=== PATIENT | female | born 1995 | race Caucasian/White ===

== ENCOUNTER → 2016-09-26 | Outpatient (CLI) | payer OTHER ==
[2016-09-26 15:30] LABS: BASO % 0.3 % (0.0-1.0); EOS # 0.1 K/mm3 (0.0-0.50); LARGE UNSTAINED CELL # 0.2 K/mm3 (0.0-0.4); LARGE UNSTAINED CELL % 1.8 % (0.0-4.0); LYMPH # 1.5 K/mm3 (1.5-6.5); LYMPH % 17.7 % (24.0-44.0); MEAN CORPUSCULAR HEMOGLOBIN 31.6 pg (27.0-33.0); MEAN CORPUSCULAR HGB CONC 35.1 g/dl (32.0-36.5); MEAN CORPUSCULAR VOLUME 90.1 fl (80.0-96.0); MONO # 0.3 K/mm3 (0.0-0.8); MONO % 4.1 % (0.0-5.0); NEUTROPHILS # 6.3 K/mm3 (1.8-7.7); PLATELET COUNT, AUTOMATED 184 k/mm3 (150-450); WHITE BLOOD COUNT 8.4 K/mm3 (4.0-10.0)
[2016-09-28 08:58] LABS: HIV SCRN NEGATIVE (NEGATIVE)
[2016-09-28 08:59] LABS: CONTROL LINE INT CTR LINE PRESENT; HIV SCRN1 NEGATIVE (NEGATIVE)
[2016-09-28 10:58] LABS: HBsAg Prenatal NEGATIVE (NEGATIVE)
== END ==
LOC: M LAB 14:41
PROVIDERS: ATTEND Advanced Practice Midwife
DX: Z34.81 Encounter for supervision of other normal pregnancy, first trimester (principal)

== ENCOUNTER → 2016-11-23 | Outpatient (CLI) | payer OTHER ==
--- NOTE | 2016-11-23 15:21 | REP ---
REASON: anatomy. PRIORS: None. Multiple sonographic images of the gravid uterus show a single living intrauterine gestation in variable positions. Doppler interrogation of the heart shows the heart rate of 147 beats per minute. The cervix measures 3.8 cm in length and is closed. The placenta is bilateral and not low-lying. The subjective amniotic fluid volume is within normal limits. BPD 4.8 cm = 20 weeks 4 days HC 18.0 cm = 20 weeks 3 days AC 15.8 cm = 21 weeks 0 day FL 3.5 cm = 21 weeks 1 day The estimated weight is 388 grams, which is at the 54th percentile for a 29-agip-9-day gestational age. The anatomical structures visualized as unremarkable are as follows: Thalami, cavum septum pellucidum, cerebellum, cisterna magna, cerebral ventricles, spine, kidneys, four-chamber heart, right and left ventricular outflow tracts, stomach, cord insertion, three-vessel umbilical cord, spine, extremities, facial features, particularly upper lip, and urinary bladder. IMPRESSION: Single living intrauterine gestation as described above with an estimated gestational age of 20 weeks 4 days via composite criteria and an estimated date of delivery of 04/08/2017 by today's exam. No anomalies were detected. Signed by Winston Wynn DO 11/23/2016 03:42 P
== END ==
LOC: M SMT 13:04
PROVIDERS: ATTEND Advanced Practice Midwife
DX: Z34.82 Encounter for supervision of other normal pregnancy, second trimester (principal)

== ENCOUNTER → 2016-12-29 | Outpatient (CLI) | payer OTHER ==
[2016-12-29 12:59] LABS: MEAN CORPUSCULAR HEMOGLOBIN 33.1 pg (27.0-33.0); MEAN CORPUSCULAR HGB CONC 34.2 g/dl (32.0-36.5); MEAN CORPUSCULAR VOLUME 96.6 fl (80.0-96.0); RED CELL DISTRIBUTION WIDTH 12.6 % (11.5-14.5); WHITE BLOOD COUNT 11.6 K/mm3 (4.0-10.0)
== END ==
LOC: M LAB 11:01
PROVIDERS: ATTEND Obstetrics & Gynecology
DX: Z34.82 Encounter for supervision of other normal pregnancy, second trimester (principal)

== ENCOUNTER → 2017-03-10 | Outpatient (REF) | payer OTHER | LOC: M LAB REF 17:10 | PROVIDERS: ATTEND Advanced Practice Midwife | DX: Z34.83 Encounter for supervision of other normal pregnancy, third trimester (principal) ==

== ENCOUNTER → 2017-03-19 | Outpatient (CLI) | payer OTHER ==
[~2017-03-19] MED LIST: COLA100C5 PO; MOTR200T44 PO; PRENTAB55 PO; TYLE325T5 PO
--- NOTE | 2017-03-19 16:44 | REP ---
Obstetric ultrasound for size, date discrepancy: There is a single intrauterine gestation in a vertex presentation. There is movement and cardiac activity. The heart rate is 122 beats per minute. The left central is fundal without previa or abruptio with grade two maturity. The amniotic fluid volume subjectively is normal. The amniotic fluid index is 12.7 (7.4 - 24.3). By the ultrasound today the gestational age is 36 weeks 2 days with an MARYANN of 04/14/2017. By the first ultrasound during this gestation the gestational age is 37 weeks 1 day. weight is 2899 grams (6 pounds, 6 ounces). This is the 38 percentile for 37 weeks 2 days. Umbilical artery Doppler assessment: SD ratio 2.45. Resistive index of 0.59. Diastolic flow velocity 15.4 cm/sec. These values are in their normal ranges. Signed by Sam Holloway MD 03/19/2017 04:35 P
== END ==
LOC: M RAD 15:44
PROVIDERS: ATTEND Advanced Practice Midwife
DX: Z36 Encounter for antenatal screening of mother (principal)

== ENCOUNTER 2017-04-01 04:43 | Inpatient (IN) | payer OTHER ==
[~2017-04-01] VITALS: Ht 160 cm; Wt 65.0 kg
[2017-04-01] VITALS (53 sets, daily range): BP systolic 57–124; BP diastolic 41–109
[2017-04-01] MEDS ORDERED: LACTATED RINGER'S 1000 ML IV STA (06:04)
[2017-04-01] MEDS ORDERED: LR 1,000 ML IV SCH (06:04)
[2017-04-01 06:16] LABS: MEAN CORPUSCULAR HEMOGLOBIN 33.6 pg (27.0-33.0); MEAN CORPUSCULAR HGB CONC 35.4 g/dl (32.0-36.5); MEAN CORPUSCULAR VOLUME 94.7 fl (80.0-96.0); RED CELL DISTRIBUTION WIDTH 12.1 % (11.5-14.5); WHITE BLOOD COUNT 19.4 K/mm3 (4.0-10.0)
[2017-04-01] MEDS ORDERED: FENTANYL 2MCG/ML ROPIVACAINE 0.2% IN 0.9% NACL 200ML IVBAG As Ordered ONE (06:59)
[2017-04-01] MEDS ORDERED: NALOXONE INJ 0.4 MG/1 ML VIAL (J2310) IV PRN (08:00)
[2017-04-01] MEDS ORDERED: EPIDURAL/PCA KEYS XX PRN (08:00)
[2017-04-01] MEDS ORDERED: REFRIGERATOR IV KEYS XX PRN (08:00)
[2017-04-01] MEDS ORDERED: ePHEDrine SULFATE 25 MG/5 ML(5MG/ML) SYRINGE IV PRN (08:00)
[2017-04-01] MEDS ORDERED: ONDANSETRON 4MG/2ML VIAL (J2405) IV PRN (08:00)
[2017-04-01] MEDS ORDERED: LACTATED RINGER'S 1000 ML IV PRN (08:00)
[2017-04-01] MEDS ORDERED: diphenhydrAMINE INJ 50MG/ML VIAL (J1200) IV PRN (08:00)
[2017-04-01] MEDS ORDERED: FENTANYL/ROPIVACAINE/NACL BAG 200 ML EPIDURAL SCH (08:00)
[2017-04-01] MEDS ORDERED: EPIDURAL COMMENT XX SCH (08:00)
[2017-04-01] MEDS ORDERED: OXYTOCIN 30 UNITS IN 0.9% NaCl 500ML IV BAG (J2590) As Ordered ONE (10:37)
[2017-04-01] MEDS ORDERED: OXYTOCIN DRIP 30 UNITS in APPROPRIATE DILUENT 1 EA IV SCH ×2 (10:45→14:58)
[2017-04-01] MEDS ORDERED: DIBUCAINE 1% OINTMENT 30GM TOP PRN (15:00)
[2017-04-01] MEDS ORDERED: METHYLERGONOVINE MALEATE 0.2 MG TAB PO PRN (15:00)
[2017-04-01] MEDS ORDERED: MEASLES,MUMPS,RUBELLA VACCINE INJ (MMR-II) (90707) SC SCH (15:00)
[2017-04-01] MEDS ORDERED: ANUSOL HC CREAM 30GM TOP PRN (15:00)
[2017-04-01] MEDS ORDERED: DOCUSATE SODIUM 100 MG CAP PO PRN (15:00)
[2017-04-01] MEDS ORDERED: RHOGAM 300 MCG (1500 IU) INJ (J2790) IM SCH (15:00)
[2017-04-01] MEDS ORDERED: ACETAMINOPHEN 500 MG TAB PO PRN (15:00)
--- NOTE | 2017-04-01 15:17 | DN ---
DATE OF DELIVERY: 04/01/2017 Linda is a 21-year-old 1, para 1-0-0-1 now who was admitted to labor and delivery in active labor. She did utilize an epidural for her labor coping. She progressed to full dilation at 1309 and had assisted rupture of membranes for a large amount of clear odorless fluid at the same time. IV Pitocin was started to augment her labor. She did push to a normal spontaneous vaginal delivery at 1428 hours. She delivered a male fetus in direct OP position with restitution to LOT position. There was no nuchal cord. The shoulders delivered spontaneously and the corpus immediately followed. The was placed on the maternal abdomen crying and active. His mouth and nares were bulb suctioned. The cord was clamped times two and cut by the maternal great-grandmother. A spontaneous expulsion of an intact placenta with three-vessel cord by [place] mechanism was at 1434 hours. Uterine hemostasis achieved with IV Pitocin rapid infusion and uterine fundal massage. Estimated blood loss 300 mL. Perineum and vagina were inspected noted to have a first-degree midline laceration. The laceration was repaired under epidural anesthesia in the usual fashion. [place] male weighed 6 pounds 1 ounce, 2760 grams, scores of 9 and 10. Mother is naming her son Robina. She is going to bottle feed her son. At the close of delivery, lap counts, needle counts and instrument counts were correct and verified. Edited: [facility] 04/04/2017 1247 MTDD
[2017-04-01] MEDS: IBUPROFEN 800 MG TAB PO PRN (15:56)
[2017-04-02] MEDS: IBUPROFEN 800 MG TAB PO PRN ×3 (00:45→23:20)
[2017-04-02 05:36] VITALS: BP 104/53
[2017-04-02] MEDS: PRENATAL VITAMINS CHEWABLE TABLET PO SCH (08:08)
[2017-04-02 18:35] VITALS: BP 119/72
[2017-04-03 05:30] VITALS: BP 117/59
[2017-04-03] MEDS: PRENATAL VITAMINS CHEWABLE TABLET PO SCH (08:09)
[2017-04-03] MEDS: IBUPROFEN 800 MG TAB PO PRN (08:10)
[2017-04-03] MEDS ORDERED: MOTR200T44 PO (11:18)
[2017-04-03] MEDS ORDERED: COLA100C5 PO (11:18)
[2017-04-03] MEDS ORDERED: TYLE325T5 PO (11:18)
[2017-04-03] MEDS ORDERED: PRENTAB55 PO (11:18)
== END 2017-04-03 11:50 | disposition home or self-care (01) | DRG 560 ==
LOC: M LDO 04:43 → M LDI 06:02 → M OBS 16:36
PROVIDERS: ADMIT Obstetrics & Gynecology; ATTEND Obstetrics & Gynecology
PROC: 10E0XZZ Delivery of Products of Conception, External Approach (ICD-10-PCS; principal; 2017-04-01)
PROC: 0HQ9XZZ Repair Perineum Skin, External Approach (ICD-10-PCS; 2017-04-01)
DX: O70.0 First degree perineal laceration during delivery (principal); F17.200 Nicotine dependence, unspecified, uncomplicated; Z37.0 Single live birth; Z3A.39 39 weeks gestation of pregnancy; O99.334 Smoking (tobacco) complicating childbirth

== ENCOUNTER → 2020-01-14 | Outpatient (REF) | payer OTHER | LOC: M LAB REF 19:05 | PROVIDERS: ATTEND Physician Assistant | DX: J02.9 Acute pharyngitis, unspecified (principal) ==

== ENCOUNTER → 2020-03-28 | Outpatient (CLI) | payer OTHER ==
--- NOTE | 2020-03-28 22:56 | REP ---
KNEE: REASON: Atraumatic knee pain. PRIORS: None. FINDINGS: The compartments are symmetric and relatively well maintained. There is no acute fracture or destructive osseous lesion. Electronically Signed by Winston Wynn DO 03/29/2020 08:52 A
== END ==
LOC: M WUC 13:31
PROVIDERS: ATTEND Physician Assistant
DX: M25.561 Pain in right knee (principal)

== ENCOUNTER → 2020-11-21 | Outpatient (REF) | payer OTHER | LOC: M SFHCWAGY 16:42 | PROVIDERS: ATTEND Advanced Practice Midwife | DX: Z11.3 Encounter for screening for infections with a predominantly sexual mode of transmission (principal) ==

== ENCOUNTER → 2021-05-30 | Outpatient (CLI) | payer OTHER ==
[2021-05-30 17:11] LABS: HEMATOCRIT 37.4 % (36.0-47.0); HEMOGLOBIN 12.9 g/dl (12.0-15.5); MEAN CORPUSCULAR HEMOGLOBIN 31.9 pg (27.0-33.0); MEAN CORPUSCULAR HGB CONC 34.5 g/dl (32.0-36.5); MEAN CORPUSCULAR VOLUME 92.3 fl (80.0-96.0); PLATELET COUNT, AUTOMATED 224 10^3/uL (150-450); RED BLOOD COUNT 4.05 10^6/uL (4.00-5.40); WHITE BLOOD COUNT 10.7 10^3/uL (4.0-10.0)
[2021-05-30 18:29] LABS: GC DNA AMPLIFICATION NEGATIVE (NEGATIVE)
== END ==
LOC: M PLALAB 14:57
PROVIDERS: ATTEND Advanced Practice Midwife
DX: O99.331 Smoking (tobacco) complicating pregnancy, first trimester (principal); F17.200 Nicotine dependence, unspecified, uncomplicated; Z3A.00 Weeks of gestation of pregnancy not specified

== ENCOUNTER → 2021-07-28 | Outpatient (REF) | LOC: M EMP 08:11 | PROVIDERS: ATTEND Family Medicine | DX: Z11.52 Encounter for screening for COVID-19 (principal); Z20.822 Contact with and (suspected) exposure to COVID-19 ==

== ENCOUNTER → 2021-07-31 | Outpatient (REF) | LOC: M LABSMTC 09:59 | PROVIDERS: ATTEND Pediatrics | DX: Z11.52 Encounter for screening for COVID-19 (principal); Z20.822 Contact with and (suspected) exposure to COVID-19 ==

== ENCOUNTER → 2021-08-20 | Outpatient (CLI) | payer OTHER | LOC: M WHC 12:57 | PROVIDERS: ATTEND Advanced Practice Midwife | DX: O99.332 Smoking (tobacco) complicating pregnancy, second trimester (principal); Z3A.20 20 weeks gestation of pregnancy ==

== ENCOUNTER → 2021-08-29 | Outpatient (CLI) | payer OTHER | LOC: M WHC 14:38 | PROVIDERS: ATTEND Specialist | DX: Z36.2 Encounter for other antenatal screening follow-up (principal); Z3A.22 22 weeks gestation of pregnancy ==

== ENCOUNTER → 2021-10-02 | Outpatient (REF) | LOC: M LABSMTC 13:27 | PROVIDERS: ATTEND Pediatrics | DX: Z11.52 Encounter for screening for COVID-19 (principal); Z20.822 Contact with and (suspected) exposure to COVID-19 ==

== ENCOUNTER → 2021-10-10 | Outpatient (CLI) | payer OTHER | LOC: M WHC 15:01 | PROVIDERS: ATTEND Advanced Practice Midwife | DX: Z34.82 Encounter for supervision of other normal pregnancy, second trimester (principal); Z3A.27 27 weeks gestation of pregnancy ==

== ENCOUNTER → 2021-10-17 | Outpatient (CLI) | payer OTHER | LOC: M PLALAB 10:12 | PROVIDERS: ATTEND Specialist | DX: Z34.82 Encounter for supervision of other normal pregnancy, second trimester (principal); Z36.89 Encounter for other specified antenatal screening ==

== ENCOUNTER → 2021-10-27 | Outpatient (CLI) | payer OTHER | LOC: M WHC 13:22 | PROVIDERS: ATTEND Advanced Practice Midwife | DX: Z34.83 Encounter for supervision of other normal pregnancy, third trimester (principal); Z3A.29 29 weeks gestation of pregnancy ==

== ENCOUNTER → 2021-11-19 | Outpatient (REF) | payer OTHER | LOC: M PLALAB 08:42 | PROVIDERS: ATTEND Advanced Practice Midwife | DX: Z12.4 Encounter for screening for malignant neoplasm of cervix (principal) ==

== ENCOUNTER → 2021-12-05 | Outpatient (REF) | payer OTHER | LOC: M PLALAB 15:06 | PROVIDERS: ATTEND Specialist | DX: Z36.85 Encounter for antenatal screening for Streptococcus B (principal) ==

== ENCOUNTER → 2022-05-15 | Outpatient (REF) ==
[~2022-05-15] MED LIST changes: +BENA25CA4 PO
== END ==
LOC: M EMP 08:26
PROVIDERS: ATTEND Family Medicine
DX: Z20.822 Contact with and (suspected) exposure to COVID-19 (principal)

== ENCOUNTER → 2022-06-03 | Outpatient (REF) | LOC: M LABSMTC 11:56 | PROVIDERS: ATTEND Family Medicine | DX: Z20.822 Contact with and (suspected) exposure to COVID-19 (principal) ==

== ENCOUNTER → 2023-06-09 | Outpatient (REF) | LOC: M EMP 09:08 | PROVIDERS: ATTEND Family Medicine | DX: Z11.52 Encounter for screening for COVID-19 (principal) ==

== ENCOUNTER → 2024-06-20 | Outpatient (REF) | LOC: M EMP 08:06 | PROVIDERS: ATTEND Family Medicine | DX: Z11.52 Encounter for screening for COVID-19 (principal) ==

== ENCOUNTER → 2024-07-14 | Outpatient (CLI) | payer OTHER ==
[2024-07-14 19:40] LABS: BASO % 0.4 % (0.0-1.0); EOS # 0.1 10^3/uL (0.0-0.5); EOS % 1.2 % (0.0-3.0); HEMATOCRIT 38.1 % (36.0-47.0); HEMOGLOBIN 12.6 g/dl (12.0-15.5); LYMPH # 2.3 10^3/uL (1.5-5.0); LYMPH % 30.7 % (24.0-44.0); MEAN CORPUSCULAR HEMOGLOBIN 30.1 pg (27.0-33.0); MEAN CORPUSCULAR HGB CONC 33.1 g/dl (32.0-36.5); MEAN CORPUSCULAR VOLUME 91.1 fl (80.0-96.0); MONO # 0.5 10^3/uL (0.0-0.8); MONO % 6.9 % (2.0-8.0); NEUTROPHILS # 4.6 10^3/uL (1.5-8.5); NEUTROPHILS % 60.1 % (36.0-66.0); PLATELET COUNT, AUTOMATED 254 10^3/uL (150-450); RED BLOOD COUNT 4.18 10^6/uL (4.00-5.40); WHITE BLOOD COUNT 7.6 10^3/uL (4.0-10.0)
[2024-07-14 20:10] LABS: LIPASE 34 U/L (12-53)
[2024-07-14 20:11] LABS: ALBUMIN 3.8 G/DL (3.2-5.2); ALKALINE PHOSPHATASE 94 U/L (35-104); ALT/SGPT 14 U/L (7.0-40); AST/SGOT 10 U/L (<34); BILIRUBIN,TOTAL 0.6 MG/DL (0.3-1.2); BLOOD UREA NITROGEN 10 MG/DL (9-23); CARBON DIOXIDE LEVEL 26 MMOL/L (20-31); CHLORIDE LEVEL 110 MMOL/L (98-107); CHOLESTEROL LEVEL 147 MG/DL (<200); CHOLESTEROL RISK RATIO 3.92 (<5); CREATININE FOR GFR 0.74 MG/DL (0.55-1.30); GLOMERULAR FILTRATION RATE > 60.0 (>60); GLUCOSE, FASTING 96 MG/DL (60-100); HDL CHOLESTEROL 37.5 MG/DL (>40); LDL CHOLESTEROL 93.9 MG/DL (<100); NON-HDL-C 109.5 MG/DL; POTASSIUM SERUM 3.9 MMOL/L (3.5-5.1); SODIUM LEVEL 142 MMOL/L (136-145); TOTAL PROTEIN 7.1 G/DL (5.7-8.2); TRIGLYCERIDES LEVEL 78 MG/DL (<150)
[2024-07-14 20:15] LABS: FREE T4 1.17 NG/DL (0.89-1.76)
== END ==
LOC: M PLALAB 14:44
PROVIDERS: ATTEND Nurse Practitioner Family
DX: R10.84 Generalized abdominal pain (principal); R53.83 Other fatigue; Z13.220 Encounter for screening for lipoid disorders

== ENCOUNTER → 2024-07-17 | Outpatient (CLI) | payer OTHER | LOC: M WHC 08:33 | PROVIDERS: ATTEND Nurse Practitioner Family | DX: R10.84 Generalized abdominal pain (principal) ==

== ENCOUNTER → 2024-07-18 | Outpatient (REF) | payer OTHER ==
[2024-07-20 15:48] LABS: HPV APTIMA Not Detected (Not Detected)
== END ==
LOC: M SFHCWAGY 14:48
PROVIDERS: ATTEND Nurse Practitioner Family
DX: Z12.4 Encounter for screening for malignant neoplasm of cervix (principal)

== ENCOUNTER → 2024-09-06 | Outpatient (CLI) | payer OTHER | LOC: M WHC 10:04 | PROVIDERS: ATTEND Nurse Practitioner Family | DX: N64.3 Galactorrhea not associated with childbirth (principal) ==

== ENCOUNTER 2024-11-30 09:52 | Day surgery (SDC) | payer OTHER ==
[~2024-11-30] VITALS: Ht 160 cm; Wt 74.8 kg
[~2024-11-30 09:52] MED LIST changes: +OMEP40CA5 PO
[2024-11-30 10:20] LABS: HEMATOCRIT 36.9 % (36.0-47.0); HEMOGLOBIN 12.4 g/dl (12.0-15.5); MEAN CORPUSCULAR HEMOGLOBIN 30.6 pg (27.0-33.0); MEAN CORPUSCULAR HGB CONC 33.6 g/dl (32.0-36.5); MEAN CORPUSCULAR VOLUME 91.1 fl (80.0-96.0); PLATELET COUNT, AUTOMATED 236 10^3/uL (150-450); RED BLOOD COUNT 4.05 10^6/uL (4.00-5.40); WHITE BLOOD COUNT 7.2 10^3/uL (4.0-10.0)
[2024-11-30] MEDS ORDERED: LR 1,000 ML IV SCH ×3 (10:50→14:20)
[2024-11-30] MEDS ORDERED: SUGAMMADEX SODIUM 500 MG/5 ML VIAL (BRIDION) As Ordered ONE (11:54)
[2024-11-30] MEDS ORDERED: ROCURONIUM BROMIDE 50MG/5ML VIAL As Ordered ONE (11:54)
[2024-11-30] MEDS ORDERED: propofoL 200 MG/20 ML VIAL As Ordered ONE (11:54)
[2024-11-30] MEDS ORDERED: LIDOCAINE 2% 100MG/5ML SDV (FOR ANES.) As Ordered ONE (11:54)
[2024-11-30] MEDS ORDERED: KETOROLAC 60MG 2ML VIAL As Ordered ONE (11:55)
[2024-11-30] MEDS ORDERED: ONDANSETRON 4MG 2ML VIAL As Ordered ONE (11:55)
[2024-11-30] MEDS ORDERED: MIDAZOLAM INJ 2MG/2ML VIAL As Ordered ONE (12:00)
[2024-11-30] MEDS ORDERED: fentaNYL 100 MCG/2 ML INJECTION As Ordered ONE (12:00)
[2024-11-30] MEDS ORDERED: ACETAMINOPHEN 1000MG/100ML IV BAG As Ordered ONE (12:46)
[2024-11-30] MEDS ORDERED: IBUP-1022 PO (13:13)
[2024-11-30] MEDS ORDERED: OXYC1TAB23 PO (13:15)
[2024-11-30] MEDS ORDERED: fentaNYL 100 MCG/2 ML INJECTION IV PRN (13:55)
[2024-11-30] MEDS ORDERED: HYDROMORPHONE HCL 0.5 MG/ 0.5 ML SYRINGE IV PRN (13:55)
[2024-11-30] MEDS ORDERED: ONDANSETRON 4MG 2ML VIAL IV PRN (13:55)
[2024-11-30] MEDS: oxyCODONE 5MG TAB PO PRN (14:10)
[2024-11-30] MEDS ORDERED: PERCOCET 5MG/325MG TAB PO PRN (14:20)
[2024-11-30 15:00] VITALS: BP 107/66; TEMP 97.9; O2SAT 99
== END 2024-11-30 15:33 | disposition home or self-care (01) ==
LOC: M SDC 09:52
PROVIDERS: ATTEND Specialist
DX: Z30.2 Encounter for sterilization (principal); K21.9 Gastro-esophageal reflux disease without esophagitis; Z79.899 Other long term (current) drug therapy; F17.210 Nicotine dependence, cigarettes, uncomplicated
CPT/HCPCS: 36415; 58661; 81025; 85027; 88302; J0131; J0665; J1100; J1885; J2250; J2405; J3010

== ENCOUNTER → 2025-07-19 | Outpatient (CLI) | payer OTHER, SELFPAY ==
[~2025-07-19] MED LIST changes: +IBUP600T42 PO; +OXYC1TAB23 PO
[2025-07-19 15:45] LABS: BASO # 0.1 10^3/uL (0.0-0.2); BASO % 0.8 % (0.0-1.0); EOS # 0.2 10^3/uL (0.0-0.5); EOS % 2.2 % (0.0-3.0); LYMPH # 2.4 10^3/uL (1.5-5.0); LYMPH % 28.2 % (24.0-44.0); MONO # 0.7 10^3/uL (0.0-0.8); MONO % 7.8 % (2.0-8.0); NEUTROPHILS # 5.2 10^3/uL (1.5-8.5); NEUTROPHILS % 60.5 % (36.0-66.0); PLATELET COUNT, AUTOMATED 280 10^3/uL (150-450)
[2025-07-19 16:16] LABS: ESTIMATED AVERAGE GLUCOSE 100.0 MG/DL (60-110); IRON (FE) 67.0 UG/DL (50-170); PERCENT SATURATION 22.8 % (13.2-45.0)
[2025-07-19 16:19] LABS: FREE T4 1.02 NG/DL (0.89-1.76)
== END ==
LOC: M PLALAB 13:49
PROVIDERS: ATTEND Nurse Practitioner Family
DX: Z01.411 Encounter for gynecological examination (general) (routine) with abnormal findings (principal); N92.1 Excessive and frequent menstruation with irregular cycle

== ENCOUNTER → 2025-08-09 | Outpatient (CLI) | payer OTHER | LOC: M WHC 13:20 | PROVIDERS: ATTEND Nurse Practitioner Family | DX: N94.10 Unspecified dyspareunia (principal); N92.1 Excessive and frequent menstruation with irregular cycle ==

== ENCOUNTER → 2025-09-11 | Outpatient (CLI) | payer OTHER | LOC: M WHC 13:00 | PROVIDERS: ATTEND Nurse Practitioner Family | DX: R92.8 Other abnormal and inconclusive findings on diagnostic imaging of breast (principal) ==